=== PATIENT | male | born 2000 | race Caucasian/White ===

== ENCOUNTER 2019-02-01 02:08 | Emergency (ER) | payer MEDICAID ==
[~2019-02-01] VITALS: Ht 177.8 cm; Wt 59.0 kg
[2019-02-01 02:13] VITALS: Ht 177.8 cm; Wt 59.0 kg
[2019-02-01 02:45] LABS: BASOPHIL % 0.2 % (0-2); CALCIUM 8.2 mg/dL (8.5-10.1); CARBON DIOXIDE 24.6 mmol/L (21-32); CHLORIDE SERUM 99 mmol/L (98-107); CREATININE SERUM 0.9 mg/dL (0.7-1.3); GFR1 > 60 mL/min; GLUCOSE SERUM 76 mg/dL (74-106); PLATELET COUNT 264 x10^3mcL (130-400); RED CELL DISTRIBUTION WIDTH 12.7 % (11.5-14.5); SODIUM SERUM 135 mmol/L (136-145)
[2019-02-01 04:38] LABS: AMPHETAMINE QUAL UR NONE DETECTED (See below)
[2019-02-01 05:53] VITALS: BP 115/57
== END 2019-02-01 05:53 | disposition home or self-care (01) ==
LOC: ED 02:08
PROVIDERS: Emergency Medicine
DX: R41.82 Altered mental status, unspecified (principal); F10.129 Alcohol abuse with intoxication, unspecified; F12.10 Cannabis abuse, uncomplicated
CPT/HCPCS: G0480

== ENCOUNTER 2020-08-15 23:44 | Emergency (ER) | payer SELFPAY ==
[~2020-08-15] VITALS: Ht 180.3 cm; Wt 63.5 kg
[2020-08-15 23:56] VITALS: BP 161/68; Ht 180.3 cm; Wt 63.5 kg
== END 2020-08-16 00:23 | disposition other institution (70) ==
LOC: ED 23:44
DX: F10.129 Alcohol abuse with intoxication, unspecified (principal); Z13.9 Encounter for screening, unspecified
CPT/HCPCS: J1630; J2250

== ENCOUNTER 2020-08-15 23:44 | Emergency (ER) | payer OTHER | END 2020-08-16 00:23 | disposition other institution (70) | LOC: ED 23:44 | DX: Z02.89 Encounter for other administrative examinations (principal) ==